=== PATIENT | male | born 1995 | race African-American/Black ===

== ENCOUNTER 2022-11-13 06:48 | Emergency (ER) | payer SELFPAY ==
[2022-11-13] MEDS ORDERED: Ibuprofen 200 MG TAB ONE (07:37)
== END 2022-11-13 09:45 | disposition home or self-care (01) ==
LOC: NAV ERS 06:48
DX: S62.002A Unspecified fracture of navicular [scaphoid] bone of left wrist, initial encounter for closed fracture (principal); S62.001A Unspecified fracture of navicular [scaphoid] bone of right wrist, initial encounter for closed fracture; F17.210 Nicotine dependence, cigarettes, uncomplicated; W19.XXXA Unspecified fall, initial encounter
CPT/HCPCS: 29125